=== PATIENT | female | born 1990 | race Caucasian/White ===

== ENCOUNTER → 2019-05-20 10:34 | Outpatient (CLI) | payer OTHER, SELFPAY ==
[2019-05-20 10:05] VITALS: BMI 27.9
[2019-05-20 11:00] LABS: Absolute Lymphocyte Count 1.87 X10^3/uL (0.83-4.51); Absolute Neutrophil Count 2.6 X10^3/uL (2.0-7.7); Basophil# 0.02 X10^3/uL; Basophil% 0.4 % (0-1); Eosinophil# 0.06 X10^3/uL; Eosinophils% 1.2 % (0-5); Hematocrit 42.9 % (37-47); Hemoglobin 14.4 g/dL (12.0-15.0); Lymphocyte # 1.87 X10^3/ul (4.0); Lymphocyte % 37.3 % (19-41); Mean Corp Hgb Conc 33.6 g/dL (32-36); Mean Corpuscular Volume 95.3 fL (81-99); Mean Platelet Vol. 10.2 fl (6.2-12.0); Monocyte# 0.49 X10^3/uL; Monocyte% 9.8 % (0-10); NRBC Flagged by Analyzer 0 % (0-5); Neutrophil # 2.56 X10^3/uL (2.7-7.7); Neutrophil % 51.1 % (47-70); Platelet Count 203 K/mm3 (150-450); RBC Distribution Width CV 12.4 % (11.6-14.6); RBC Distribution Width SD 43.2 fl (35.1-43.9)
[2019-05-23 03:06] LABS: Alternaria alternata <0.10 kU/L (Class 0); Bermuda Grass 0.71 kU/L (Class II); Bluegrass, Kentucky 0.67 kU/L (Class II); Cat Hair/Dander, Standard <0.10 kU/L (Class 0); D farinae Mite 0.16 kU/L (Class 0/I); D pteronyssinus <0.10 kU/L (Class 0); Dog Epithelia <0.10 kU/L (Class 0); Elm, American White 0.53 kU/L (Class I); Oak, White 0.59 kU/L (Class II); Plantain, English 0.68 kU/L (Class II); Ragweed, Short/Common 0.69 kU/L (Class II)
[2019-05-23 13:01] LABS: Mouse Urine <0.10 kU/L (Class 0)
== END ==
PROVIDERS: Family Provider Family Medicine; PCP Family Medicine; Referring Provider Nurse Practitioner Acute Care; Visit Provider Nurse Practitioner Acute Care
DX: R05 Cough (principal)
CPT/HCPCS: 36415; 85025; 86003